=== PATIENT | male | born 1945 | race Caucasian/White ===

== ENCOUNTER → 2018-09-30 | Outpatient (REF) | payer MEDICARE, BC, OTHER ==
[~2018-09-30] MED LIST: AMBIEN5 MG PO; CIALIS10 MG PO; ETODOLAC ER500 MG PO; FIBERCON625 MG PO; LISINOPRIL10 MG PO; MULTI VIT PO; NEXIUM20 M1 PO; SYNTHROID88 MCG PO
[2018-09-30 10:26] LABS: HEMATOCRIT 47.8 % (39.0-50.0); HEMOGLOBIN 15.6 g/dl (14.0-18.0); MEAN CELL VOLUME 94.7 fL CALC (80.0-100.0); MEAN CORPUSCULAR HGB 30.9 pG CALC (26.0-32.0); MEAN CORPUSCULAR HGB CONC 32.6 g/L CALC (32.0-36.0); RED BLOOD COUNT 5.05 mill/uL (4.70-6.10); RED CELL DISTRI WIDTH 13.3 % (11.5-15.5)
[2018-09-30 10:50] LABS: ALBUMIN 4.4 g/dL (3.2-5.0); ALKALINE PHOSPHATASE 57 u/l (38-126); ANION GAP 16 (6-22 (CALC)); BILIRUBIN, TOTAL 0.9 mg/dL (0.0-1.4); BUN 15 mg/dL (8-23); BUN/CREATININE RATIO 14 (12-20 (CALC)); CALCULATED LDLCHOLESTEROL 125 mg/dL (62-129 (CALC)); CARBON DIOXIDE 26 mmol/l (22-30); CHLORIDE 106 mmol/l (95-108); CHOLESTEROL HDL RATIO 3.5 (<4.4 (CALC)); CREATININE 1.1 mg/dL (0.7-1.3); GFR > 60 ML/MIN (>=60 (CALC)); GFR FOR AFR.AMER. > 60 ML/MIN (>=60 (CALC)); HDL CHOLESTEROL 55 mg/dL (>=40); POTASSIUM 4.4 mmol/l (3.5-5.1); SGOT/AST 21 u/l (19-48); SODIUM 144 mmol/l (137-146); TOTAL CHOLESTEROL 190 mg/dl (0-199); TOTAL PROTEIN 7.2 g/dL (6.3-8.2); TOTAL TRIGLYCERIDES 54 mg/dl (30-149); VLDL CHOLESTROL 11 mg/dl (0-38 (CALC))
[2018-09-30 11:12] LABS: TSH, 3RD GENERATION 4.66 uIU/mL (0.47 - 4.68)
== END | disposition home or self-care (01) ==
LOC: LAB 08:52
PROVIDERS: ATTEND Nurse Practitioner
DX: E78.5 Hyperlipidemia, unspecified (principal); I10 Essential (primary) hypertension; K21.9 Gastro-esophageal reflux disease without esophagitis

== ENCOUNTER 2023-09-03 09:03 | Observation (INO) | payer MEDICARE, BC, OTHER ==
[2023-09-03] VITALS (20 sets, daily range): BP systolic 109–136; BP diastolic 66–91
[~2023-09-03] VITALS: Ht 193 cm; Wt 114.8 kg
[2023-09-03] MEDS ORDERED: ASPIRIN 81 MG/TAB PO ONE (09:10)
[2023-09-03 09:30] LABS: BASO% 0.7 % (0-3); EOS% 1.1 % (0-8); HEMATOCRIT 44.2 % (39.0-50.0); HEMOGLOBIN 14.6 g/dl (14.0-18.0); LYMPH% 22.4 % (15-41); MEAN CELL VOLUME 94.8 fL CALC (80.0-100.0); MEAN CORPUSCULAR HGB 31.3 pG CALC (26.0-32.0); NEUT# 3.57 thou/uL (1.82-7.42); NEUT% 66.8 % (42-76); RED BLOOD COUNT 4.66 mill/uL (4.70-6.10); RED CELL DISTRI WIDTH 12.9 % (11.5-15.5)
[2023-09-03 09:44] LABS: ALBUMIN 4.2 g/dL (3.2-5.0); ALKALINE PHOSPHATASE 51 u/l (38-126); ANION GAP 7 (6-22 (CALC)); BILIRUBIN, TOTAL 0.8 mg/dL (0.2-1.3); BUN 17 mg/dL (8-23); BUN/CREATININE RATIO 16 (12-20 (CALC)); CARBON DIOXIDE 31 mmol/l (22-30); CHLORIDE 105 mmol/l (95-108); CREATININE 1.1 mg/dL (0.7-1.3); GFR FOR AFR.AMER. > 60 ML/MIN (>=60 (CALC)); GFR OTHER RACES > 60 ML/MIN (>=60 (CALC)); POTASSIUM 3.3 mmol/l (3.5-5.1); SGOT/AST 28 u/l (19-48); SODIUM 140 mmol/l (137-146)
[2023-09-03 10:15] LABS: TSH, 3RD GENERATION 1.79 uIU/mL (0.47 - 4.68)
[2023-09-03] MEDS ORDERED: MAGNESIUM HYDROXIDE 30 ML UDC PO PRN (13:10)
[2023-09-03] MEDS ORDERED: NITROGLYCERIN 0.4 MG/TAB SL PRN (13:10)
[2023-09-03] MEDS ORDERED: ACETAMINOPHEN 325 MG/TAB PO PRN (13:10)
[2023-09-03] MEDS ORDERED: SODIUM CHLORIDE 0.9% 1,000 ML IV PRN (13:10)
[2023-09-03] MEDS ORDERED: Zaleplon 5 MG/CAP PO PRN (13:10)
[2023-09-03] MEDS ORDERED: ALFUZOSIN HCL E10 MG PO (13:53)
[2023-09-03] MEDS ORDERED: PROSCAR5 MG PO (13:54)
[2023-09-03] MEDS ORDERED: MELOXICAM7.5 MG PO (13:55)
[2023-09-03] MEDS ORDERED: HYDROCHLOROTHIA50 MG PO (13:55)
[2023-09-03] MEDS ORDERED: KLOR-CON M1010 MEQ PO (13:56)
[2023-09-03] MEDS ORDERED: SINGULAIR10 MG PO (13:56)
[2023-09-03] MEDS ORDERED: ZYRTEC10 MG PO (13:57)
[2023-09-03] MEDS ORDERED: ALLERGY RE50 MCG/ACT (13:58)
[2023-09-03] MEDS ORDERED: POTASSIUM CHLORIDE 20 MEQ/TAB PO SCH (15:00)
[2023-09-03] MEDS ORDERED: ATORVASTATIN CALCIUM 40 MG/TAB PO SCH (21:00)
[2023-09-03] MEDS ORDERED: ENOXAPARIN SODIUM 40 MG/0.4 ML SYR SC SCH (21:00)
[2023-09-04 00:52] VITALS: BP 106/58
[2023-09-04 04:56] VITALS: BP 107/62
[2023-09-04] MEDS ORDERED: LEVOTHYROXINE SODIUM 88 MCG TAB PO SCH (06:00)
[2023-09-04] MEDS ORDERED: LEVOTHYROXINE SODIUM 125 MCG/TAB PO SCH (06:00)
[2023-09-04 06:51] LABS: BASO% 0.8 % (0-3); EOS% 1.8 % (0-8); HEMATOCRIT 43.9 % (39.0-50.0); HEMOGLOBIN 14.3 g/dl (14.0-18.0); LYMPH% 28.4 % (15-41); MEAN CELL VOLUME 96.1 fL CALC (80.0-100.0); MEAN CORPUSCULAR HGB 31.3 pG CALC (26.0-32.0); MEAN CORPUSCULAR HGB CONC 32.6 g/dL CAL (32.0-36.0); MONO% 8.7 % (2-13); NEUT# 3.67 thou/uL (1.82-7.42); NEUT% 60.3 % (42-76); RED BLOOD COUNT 4.57 mill/uL (4.70-6.10); RED CELL DISTRI WIDTH 12.9 % (11.5-15.5)
[2023-09-04 07:06] VITALS: BP 118/72
[2023-09-04 07:21] LABS: ALBUMIN 3.8 g/dL (3.2-5.0); ALKALINE PHOSPHATASE 50 u/l (38-126); ANION GAP 6 (6-22 (CALC)); BILIRUBIN, TOTAL 0.7 mg/dL (0.2-1.3); BUN 17 mg/dL (8-23); BUN/CREATININE RATIO 17 (12-20 (CALC)); CALCULATED LDLCHOLESTEROL 116 mg/dL (62-129 (CALC)); CARBON DIOXIDE 30 mmol/l (22-30); CHLORIDE 106 mmol/l (95-108); CHOLESTEROL HDL RATIO 3.9 (<4.4 (CALC)); GFR FOR AFR.AMER. > 60 ML/MIN (>=60 (CALC)); GFR OTHER RACES > 60 ML/MIN (>=60 (CALC)); HDL CHOLESTEROL 48 mg/dL (39.0-59.0); MAGNESIUM 1.8 mg/dL (1.6-2.3); POTASSIUM 3.6 mmol/l (3.5-5.1); SGOT/AST 25 u/l (19-48); SODIUM 139 mmol/l (137-146); TOTAL CHOLESTEROL 187 mg/dl (0-199); TOTAL PROTEIN 6.3 g/dL (6.3-8.2); TOTAL TRIGLYCERIDES 113 mg/dl (0-149); VLDL CHOLESTROL 23 mg/dl (0-38 (CALC))
[2023-09-04] MEDS ORDERED: hydroCHLOROthiazide 12.5 MG/CAP PO SCH (09:00)
[2023-09-04] MEDS ORDERED: PANTOPRAZOLE SODIUM Sesquihydr 40 MG/TAB PO SCH (09:00)
[2023-09-04] MEDS ORDERED: ASPIRIN 81 MG/TAB PO SCH (09:00)
[2023-09-04 10:37] VITALS: BP 124/70
== END 2023-09-04 10:58 | disposition home or self-care (01) ==
LOC: ED 09:03 → ED-I 12:54 → ED 13:07 → MS2 13:08
PROVIDERS: Family Medicine; ADMIT Student in an Organized Health Care Education/Training Program; ATTEND Student in an Organized Health Care Education/Training Program
DX: R07.89 Other chest pain (principal); I10 Essential (primary) hypertension; I34.1 Nonrheumatic mitral (valve) prolapse; E03.9 Hypothyroidism, unspecified; G47.33 Obstructive sleep apnea (adult) (pediatric); Z87.442 Personal history of urinary calculi
CPT/HCPCS: J1650; Q9967